=== PATIENT | female | born 1950 | race Hispanic/Latino ===

== ENCOUNTER 2017-03-30 08:34 | Outpatient (CLI) | payer MEDICARE ==
--- NOTE | 2017-03-30 11:38 | Mammography Report ---
BILATERAL MAMMOGRAM: FINDINGS: The breast tissue is heterogeneously dense, which could obscure detection of small masses (approximately 50%-75% glandular). No mass, distortion, suspicious calcification, or skin change is seen. No significant change compared to prior examination in December 2013. CAD was utilized. IMPRESSION: Negative mammogram. There is no mammographic evidence of malignancy. RECOMMENDATION: Follow-up per ACS guidelines. BI-RADS CATEGORY: 1 = Negative ACR BI-RADS MAMMOGRAPHIC CODES: 0 = Needs additional imaging evaluation; 1 = Negative; 2 = Benign; 3 = Probably benign; 4 = Suspicious; 5 = Malignant; 6 = Known biopsy-proven malignancy COMMENT: 1. Dense breast tissue, i.e., adenosis, fibrocystic changes, etc., may obscure an underlying neoplasm. 2. Approximately 10% of cancers are not detected with mammography. 3. A negative mammography report should not delay biopsy if a clinically suspicious mass is present. COMMENT: Patient follow-up letters are generated in [employer].
== END 2017-03-30 08:35 | disposition home or self-care (01) ==
LOC: SPVWC 08:34
PROVIDERS: ATTEND Internal Medicine
DX: Z12.31 Encounter for screening mammogram for malignant neoplasm of breast (principal); I10 Essential (primary) hypertension; E03.9 Hypothyroidism, unspecified; F41.9 Anxiety disorder, unspecified
CPT/HCPCS: 77067; G0202

== ENCOUNTER → 2018-03-27 | Outpatient (CLI) | payer MEDICARE ==
--- NOTE | 2018-03-27 14:04 | XRay Report ---
CHEST TWO VIEWS: 03/27/18 12:29:00 CLINICAL: Shortness of breath. COMPARISON: none FINDINGS: Normal heart and pulmonary vasculature. A few tiny calcified granulomata and otherwise clear lungs. There is mild blunting of the right costophrenic angle on the frontal view. No airspace disease.Scoliosis and degenerative changes in the spine. Status post right shoulder replacement. IMPRESSION: No CHF or pneumonia.Old granulomatous disease.
== END | disposition home or self-care (01) ==
LOC: SPVIMAG 12:29
PROVIDERS: ATTEND Internal Medicine
DX: R06.02 Shortness of breath (principal); I10 Essential (primary) hypertension; K21.9 Gastro-esophageal reflux disease without esophagitis; E03.9 Hypothyroidism, unspecified; M19.90 Unspecified osteoarthritis, unspecified site; Z90.12 Acquired absence of left breast and nipple; Z90.710 Acquired absence of both cervix and uterus; Z90.722 Acquired absence of ovaries, bilateral
CPT/HCPCS: 71046

== ENCOUNTER 2019-10-22 10:31 | Outpatient (CLI) | payer MEDICARE ==
--- NOTE | 2019-10-22 14:37 | Mammography Report ---
DIGITAL SCREENING MAMMOGRAM WITH CAD, 10/22/2019 INDICATION: Routine screening mammography. TECHNIQUE: Digital bilateral 2D mammography was obtained in the craniocaudal and mediolateral obliq ue projections. This examination was interpreted with the benefit of Computer-Aided Detection analysi s. COMPARISON: 03/30/2017 FINDINGS: Breast Density: The breasts are heterogeneously dense, which may obscure small masses. There is no evidence of dominant mass, suspicious calcifications or architectural distortion in eithe r breast. Scattered bilateral benign calcifications. IMPRESSION: No mammographic evidence of malignancy. Follow up recommendation: Routine yearly BI-RADS Category 2: Benign. A "normal" or negative report should not discourage follow up or biopsy of a clinically significant f inding. A written summary of these findings will be mailed to the patient. The patient will be entered into a mammography reporting system which will generate a reminder letter for the patient's next appointmen t at the appropriate interval. The [employer] recommends yearly mammograms starting at age 40 and continuing as l aurora as a woman is in good health. Breast MRI is recommended for women with an approximate 20-25% or greater lifetime risk of breast cancer, including women with a strong family history of breast or ova olimpia cancer or who have been treated for Hodgkin's disease. Signer Name: Kal Lazcano MD Signed: 10/22/2019 2:32 PM Workstation Name: [id number]
--- NOTE | 2019-10-22 15:22 | Mammography Report ---
BONE DEXA CLINICAL: Postmenopausal. No comparison. TECHNIQUE: 2 site bone DEXA performed on an Hologic scanner. FINDINGS: The average BMD of the lumbar spine L1-L3 is 1.234g/cm squared with a T score of +2.0 and a Z score o f +4.0. The L4 vertebral body was excluded as an outlier because of endplate sclerosis at L3-4. The average total BMD of the left hip is 1.017 g/cm squared with a T score of +0.6and a Z score of +2 .1. IMPRESSION: 1. WHO classification: Normal with average fracture risk based on spine measurements. 2. WHO classification Normal with average fracture risk based on left hip measurements. RECOMMENDATION: Clinical correlation and routine screening. Definitions: BMD equal bone mineral density T score = BMD related to peak bone mass of young adult ([place] expressed an standard deviation) Z score = age-matched BMD expressed in SD World health organization (WHO) diagnostic criteria Normal T score greater than equal to 1 standard deviation Osteopenia T score between -1 and -2.4 standard deviation Osteoporosis T score -2.5 standard deviation or below. Note: BMD is not the only risk factor for fracture; also consider factors such as the patient's age, risk of falling, previous osteoporotic fracture, family history of osteoporotic fractures, current sm oker and low body weight. Z scores are not calculated if greater than 80 years of age. Signer Name: Kal Lazcano MD Signed: 10/22/2019 3:18 PM Workstation Name: [id number]
== END 2019-10-22 10:32 | disposition home or self-care (01) ==
LOC: SPVWC 10:31
PROVIDERS: ATTEND Internal Medicine
DX: Z12.31 Encounter for screening mammogram for malignant neoplasm of breast (principal); Z78.0 Asymptomatic menopausal state
CPT/HCPCS: 77067; 77080